=== PATIENT | female | born 1965 ===

== ENCOUNTER 2016-09-11 07:22 | Day surgery (SDC) | payer MEDICAID ==
[2016-09-11 07:47] VITALS: BMI 29.2
[2016-09-11 08:09] VITALS: TEMP 97.8
[2016-09-11] MEDS ORDERED: Lactated Ringer's 500 ML IV ONE (10:19)
[2016-09-11] MEDS ORDERED: Propofol 10 mg/ml Inj (20 ML) ONE (10:25)
[2016-09-11 10:26] VITALS: O2SAT 100
[2016-09-11] MEDS ORDERED: Lactated Ringer's 500 ML IV SCH (10:30)
[2016-09-11 11:41] VITALS: BP 141/80; PULSE 58; RESP 16
== END 2016-09-11 11:40 | disposition home or self-care (01) ==
LOC: C.ENDO 07:22
PROVIDERS: ATTEND Internal Medicine Gastroenterology
DX: K29.50 Unspecified chronic gastritis without bleeding (principal); K29.60 Other gastritis without bleeding
CPT/HCPCS: 43239; 84703; 88305; J2704; J3010; J7120